=== PATIENT | female | born 1980 | race Caucasian/White ===

== ENCOUNTER 2018-07-18 09:35 | Inpatient (IN) ==
[2018-07-18 09:57] LABS: Bilirubin,Urine Small (Negative); Blood,Urine Moderate (Negative); Clarity,Urine Clear (Clear); Color,Urine Dark Yellow (Yellow); Glucose,Urine (UA) Normal (Normal); Ketones,Urine 80 mg/dL (Negative); Leukocyte Esterase,Urine Small (Negative); Nitrite,Urine Negative (Negative); PH,Urine 5.5 pH Units (5.0-8.0); Protein,Urine 100 mg/dL (Neg-Trace); Specific Gravity,Urine > 1.030 (1.010-1.025); Urobilinogen,Urine Normal (Normal)
[2018-07-18 09:58] LABS: Bacteria,Urine None Seen per hpf (None-Few); Hyaline Casts,Urine Few per lpf (None-Few); Squamous Epithelial Cell,Urine Many per lpf (None-Few); WBC,Urine 50-100 per hpf (0-3)
--- NOTE | 2018-07-18 10:05 | Emergency Department Note ---
Disposition Clinical Impression: Abdominal pain Qualifiers: Abdominal location: left lower quadrant Qualified Code(s): R10.32 - Left lower quadrant pain Hydronephrosis Qualifiers: Hydronephrosis type: unspecified Qualified Code(s): N13.30 - Unspecified hydronephrosis Urolithiasis Qualifiers: Urinary calculus location: lower urinary tract Qualified Code(s): N21.9 - Calculus of lower urinary tract, unspecified Disposition: Admitted As Inpatient Condition: Fair Referrals: NONE,PCP [Primary Care Provider] - Forms: ED Satisfaction Letter, Work/School Release Time of Disposition: 13:40 Abdominal Pain HPI - General Chief Complaint: ED Abdominal Pain Stated Complaint: Flank pain,possible UTI Time Seen by Provider: 07/18/18 09:46 Source: patient Mode of arrival: ambulatory Limitations: no limitations Nursing Notes Reviewed: Yes Vital Signs Reviewed: Yes - History of Present Illness HPI Narrative: I have re-performed and reviewed the history documented by the medical student, and I confirm its accuracy except as noted below: Agree with medical student documentation. Please see their documentation for additional detail. In summary, Patient is a 28 yo female. has a history of 1 previous kidney stone, 1 previous pyelonephritis. Did not require intervention for kidney stone in the past. Multiple episodes of vomiting over the past 2 days, along with abdominal pain that started in the left flank and then gradually migrated to the left lower quadrant and suprapubic region, described as sharp. She admits to dysuria. Denies any hematuria, vaginal bleeding or discharge, concern for STDs or genital lesions, no concern for . Also has a history of gallstones but denies ever having any competitions from gallstones or any procedures of the gallbladder performed in the past. Pain Scale: 8 - Related Data Allergies Allergy/AdvReac Type Severity Reaction Status Date / Time No Known Allergies Allergy Verified 07/18/18 09:49 All systems ED: reviewed and negative except as stated. Constitutional: Reports: fever (subjective) Cardiovascular: Denies: chest pain Respiratory: Denies: dyspnea Gastrointestinal: Reports: abdominal pain, nausea, vomiting. Denies: diarrhea, constipation Genitourinary: Reports: dysuria. Denies: frequency, hematuria, discharge, ab normal menses, genital lesions Integumentary: Denies: rash Abdominal Pain PMH - Past Medical History Medical history: Reports: no medical history Psychiatric history: Reports: no psych history - Social History Smoking status: Current every day smoker Alcohol use: Reports: none Drug use: Reports: none Physical Exam - General Limitations: no limitations General appearance: alert, in no apparent distress, other (Patient appears to be anxious, try to get comfortable on exam. Most comfortable lying flat on her back.) - Head Head exam: atraumatic, normocephalic, normal inspection - Eye Eye exam: Present: normal appearance, PERRL, EOMI - ENT ENT exam: normal oropharynx, other (tachy mucous membranes) - Neck Neck exam: Present: normal inspection, full ROM, trachea midline - Chest Chest inspection: Present: normal inspection, symmetric chest wall rise - Respiratory Respiratory exam: Present: normal lung sounds bilaterally - Cardiovascular Cardiovascular exam: Present: regular rate, normal rhythm, normal heart sounds - Abdominal Exam Abdominal exam: Present: soft, tenderness (Generalized abdominal tenderness, mild to moderate, worse in the left upper and left lower quadrant.). Absent: Merritt's sign, tenderness at McBurney's Point - Extremities Exam Extremities exam: Present: normal inspection, full ROM. Absent: tenderness, pedal edema - Back Exam Back exam: Present: full ROM, CVA tenderness (L). Absent: CVA tenderness (R), muscle spasm - Neurological Exam Neurological exam: Present: alert, oriented X3 - Psychiatric Psychiatric exam: Present: anxious - Skin Skin exam: Present: warm, dry, intact, normal color Course Course Narrative: Patient is anxious on exam, try to get comfortable. She had tacky mucous membranes. She generalized abdominal tenderness, worse on the left upper and left lower quadrants. She also has complaints of dysuria, left CVA tenderness. Currently concern for possible pyelonephritis versus kidney stone. She does have history of 1 kidney stones in the past that was uncomplicated and did not require intervention. We will go ahead and give the patient Tylenol for pain control, Zofran for nausea, 1 L normal saline bolus, perform urinalysis and urine . We will also obtain CT abdomen and pelvis without contrast for further assessment kidney stone versus other intra-abdominal process. We will also obtain LFTs and lipase due to history of gallstones and she does have some tenderness in the right upper quadrant with negative Merritt's sign. 13:30 patient has elevated white blood cell count of 30. Urinalysis shows large amount of white blood cells but negative nitrite and negative for bacteria but there is small leukocyte esterase. CT shows 8.4 x 5.8 mm stone in the left UVJ. There is also significant left sided pyelonephritis, also incidental finding of a left ovarian cyst. I talked with urology Dr. Kendall and discussed large stone and possible UTI and pyelonephritis. They requested Rocephin and to make patient nothing by mouth and will likely take out the stone later on today. He recommended admission to hospitalist service at this time. Hospitalist service has accepted the patient. To note, patient does on lab work meet sepsis criteria. However, patient does not appear septic at this time. Appropriate fluids have been ordered at this time. However, broad-spectrum antibiotics were not ordered, only Rocephin due to no clear source of infection at this time and patient not appearing septic and having no hypotension or other concerning clinical findings at this time. Abdomen/Pelvis CT 07/18/18 10:06 IMPRESSION: Severe left-sided hydroureteronephrosis relating to an obstructing stone in the low left ureter, just proximal to the left ureterovesical junction. This stone measures 8.4 x 5.8 mm. There is extensive left perinephric stranding with prominence of nearby retroperitoneal lymph nodes. The distended left renal calices efface the cortical parenchyma. The left renal parenchyma is somewhat heterogeneous. Correlate for signs and/or symptoms of superimposed ascending urinary tract infection and/or pyelonephritis. The renal parenchyma is not well studied without IV contrast. Urologic consultation recommended. Subtle increase in the density of the right renal papilla of uncertain significance. This could reflect changes relating to medullary nephrocalcinosis. Clinical correlation recommended. 4.0 cm sized left ovarian cyst with simple features. This requires no specific imaging follow-up. Mild sclerosis of the sacroiliac joints of uncertain significance. Clinical correlation is recommended. D/ / 07/18/2018 12:52:47 Nikita Calvert MD / izabel Interpreting Provider: Nikita Calvert MD Vital Signs Temperature 99.4 F 07/18/18 09:36 Pulse Rate 95 07/18/18 09:36 Respiratory Rate 18 07/18/18 09:36 Blood Pressure 136/84 07/18/18 09:36 O2 Sat by Pulse Oximetry 98 07/18/18 09:36 Temperature 99.4 F 07/18/18 09:36 Pulse Rate 92 07/18/18 13:27 Respiratory Rate 16 07/18/18 13:27 Blood Pressure 128/73 07/18/18 13:27 O2 Sat by Pulse Oximetry 97 07/18/18 13:27 Oxygen Delivery Oxygen Delivery Room Air Abdominal Pain - MDM Narrative Medical decision making narrative: Patient is anxious on exam, try to get comfortable. She had tacky mucous membranes. She generalized abdominal tenderness, worse on the left upper and left lower quadrants. She also has complaints of dysuria, left CVA tenderness. Currently concern for possible pyelonephritis versus kidney stone. She does have history of 1 kidney stones in the past that was uncomplicated and did not require intervention. We will go ahead and give the patient Tylenol for pain control, Zofran for nausea, 1 L normal saline bolus, perform urinalysis and urine . We will also obtain CT abdomen and pelvis without contrast for further assessment kidney stone versus other intra-abdominal process. We will also obtain LFTs and lipase due to history of gallstones and she does have some tenderness in the right upper quadrant with negative Merritt's sign. 13:30 patient has elevated white blood cell count of 30. Urinalysis shows large amount of white blood cells but negative nitrite and negative for bacteria but there is small leukocyte esterase. CT shows 8.4 x 5.8 mm stone in the left UVJ. There is also significant left sided pyelonephritis, also incidental finding of a left ovarian cyst. I talked with urology Dr. Kendall and ish garcía large stone and possible UTI and pyelonephritis. They requested Rocephin and to make patient nothing by mouth and will likely take out the stone later on today. He recommended admission to hospitalist service at this time. Hospitalist service has accepted the patient. To note, patient does on lab work meet sepsis criteria. However, patient does not appear septic at this time. Appropriate fluids have been ordered at this time. However, broad-spectrum antibiotics were not ordered, only Rocephin due to no clear source of infection at this time and patient not appearing septic and having no hypotension or other concerning clinical findings at this time. - Medical Records Medical records reviewed: Yes I reviewed the patient's medical records. - Lab Data Lab results reviewed: Yes I reviewed the patient's lab results. Result diagrams: 07/18/18 10:24 07/18/18 10:24 Lab Results 07/18/18 07/18/18 07/18/18 Range/Units 09:42 10:24 10:24 WBC 30.7 H* (4.3-11.1) K/mcL RBC 4.58 (3.82-4.97) M/mcL Hgb 15.1 (11.5-15.4) g/dL Hct 43.1 (35.3-44.9) % MCV 94.1 (83.0-100.0) fL MCH 33.0 (28.0-33.3) pg MCHC 35.0 (31.6-35.5) g/dL RDW 13.2 (11.5-14.5) % Plt Count 218 (140-400) K/mcL MPV 10.5 (9.4-12.4) fL Immature Gran % 0.9 (0-4) % Seg Neutrophils % 88.9 % Lymphocytes % 3.2 % Monocytes % 6.8 % Eosinophils % 0.0 % Basophils % 0.2 % Neutrophils # 27.3 H (1.6-8.9) K/mcL Lymphocytes # 1.0 (0.6-4.6) K/mcL Monocytes # 2.1 H (0.0-1.3) K/mcL Eosinophils # 0.0 (0.0-0.6) K/mcL Basophils # 0.1 (0.0-0.2) K/mcL Sodium 134 L (136-145) mEq/L Potassium 3.7 (3.5-5.1) mEq/L Chloride 103 (98-107) mEq/L Carbon Dioxide 23 (23-29) mEq/L BUN 15 (6-20) mg/dL Creatinine 0.98 (0.60-1.20) mg/dL Est GFR ( Amer) > 60 (> 60) Est GFR (Non-Af Amer) > 60 (> 60) BUN/Creatinine Ratio 15 (6-26) Glucose 127 H (70-105) mg/dL Calculated Osmolality 280 (280-300) Calcium 9.6 (8.6-10.3) mg/dL Total Bilirubin 0.8 (0.3-1.0) mg/dL Direct Bilirubin 0.1 (0.0-0.2) mg/dL Indirect Bilirubin 0.7 (0.0-1.2) mg/dL AST 15 (13-39) Units/L ALT 12 (7-52) Units/L Alkaline Phosphatase 68 (34-104) Units/L Serum Total Protein 7.8 (6.4-8.9) g/dL Albumin 4.3 (3.5-5.7) g/dL Globulin 3.5 (2.4-3.5) g/dL Albumin/Globulin Ratio 1.2 (1.1-2.2) Lipase 13 (11-82) Units/L Ur Specimen Adequacy See below A Urine Color Dark Yellow (Yellow) Urine Clarity Clear (Clear) Urine pH 5.5 (5.0-8.0) pH Units Ur Specific [place] > 1.030 H (1.010-1.025) Urine Protein 100 H (Neg-Trace) mg/dL Urine Glucose (UA) Normal (Normal) mg/dL Urine Ketones 80 H (Negative) mg/dL Urine Blood Moderate H (Negative) Urine Nitrite Negative (Negative) Urine Bilirubin Small H (Negative) Urine Urobilinogen Normal (Normal) mg/dL Ur Leukocyte Esterase Small H (Negative) Urine Microscopic RBC 0-3 (0-3) per hpf Urine Microscopic WBC 50-100 H (0-3) per hpf Ur Squamous Epith Cells Many H (None-Few) per lpf Urine Bacteria None Seen (None-Few) per hpf Hyaline Casts Few (None-Few) per lpf Ur Culture Indicated? NO. A (NO) Urine Test (Negative) 07/18/18 Range/Units 10:26 WBC (4.3-11.1) K/mcL RBC (3.82-4.97) M/mcL Hgb (11.5-15.4) g/dL Hct (35.3-44.9) % MCV (83.0-100.0) fL MCH (28.0-33.3) pg MCHC (31.6-35.5) g/dL RDW (11.5-14.5) % Plt Count (140-400) K/mcL MPV (9.4-12.4) fL Immature Gran % (0-4) % Seg Neutrophils % % Lymphocytes % % Monocytes % % Eosinophils % % Basophils % % Neutrophils # (1.6-8.9) K/mcL Lymphocytes # (0.6-4.6) K/mcL Monocytes # (0.0-1.3) K/mcL Eosinophils # (0.0-0.6) K/mcL Basophils # (0.0-0.2) K/mcL Sodium (136-145) mEq/L Potassium (3.5-5.1) mEq/L Chloride (98-107) mEq/L Carbon Dioxide (23-29) mEq/L BUN (6-20) mg/dL Creatinine (0.60-1.20) mg/dL Est GFR ( Amer) (> 60) Est GFR (Non-Af Amer) (> 60) BUN/Creatinine Ratio (6-26) Glucose (70-105) mg/dL Calculated Osmolality (280-300) Calcium (8.6-10.3) mg/dL Total Bilirubin (0.3-1.0) mg/dL Direct Bilirubin (0.0-0.2) mg/dL Indirect Bilirubin (0.0-1.2) mg/dL AST (13-39) Units/L ALT (7-52) Units/L Alkaline Phosphatase (34-104) Units/L Serum Total Protein (6.4-8.9) g/dL Albumin (3.5-5.7) g/dL Globulin (2.4-3.5) g/dL Albumin/Globulin Ratio (1.1-2.2) Lipase (11-82) Units/L Ur Specimen Adequacy Urine Color (Yellow) Urine Clarity (Clear) Urine pH (5.0-8.0) pH Units Ur Specific [place] (1.010-1.025) Urine Protein (Neg-Trace) mg/dL Urine Glucose (UA) (Normal) mg/dL Urine Ketones (Negative) mg/dL Urine Blood (Negative) Urine Nitrite (Negative) Urine Bilirubin (Negative) Urine Urobilinogen (Normal) mg/dL Ur Leukocyte Esterase (Negative) Urine Microscopic RBC (0-3) per hpf Urine Microscopic WBC (0-3) per hpf Ur Squamous Epith Cells (None-Few) per lpf Urine Bacteria (None-Few) per hpf Hyaline Casts (None-Few) per lpf Ur Culture Indicated? (NO) Urine Test Negative (Negative) - EKG Data EKG attestation: Yes I reviewed and interpreted this EKG. EKG results narrative: Abdomen/Pelvis CT 07/18/18 10:06 IMPRESSION: Severe left-sided hydroureteronephrosis relating to an obstructing stone in the low left ureter, just proximal to the left ureterovesical junction. This stone measures 8.4 x 5.8 mm. There is extensive left perinephric stranding with prominence of nearby retroperitoneal lymph nodes. The distended left renal calices efface the cortical parenchyma. The left renal parenchyma is somewhat heterogeneous. Correlate for signs and/or symptoms of superimposed ascending urinary tract infection and/or pyelonephritis. The renal parenchyma is not well studied without IV contrast. Urologic consultation recommended. Subtle increase in the density of the right renal papilla of uncertain significance. This could reflect changes relating to medullary nephrocalcinosis. Clinical correlation recommended. 4.0 cm sized left ovarian cyst with simple features. This requires no specific imaging follow-up. Mild sclerosis of the sacroiliac joints of uncertain significance. Clinical correlation is recommended. D/ / 07/18/2018 12:52:47 Nikita Calvert MD / izabel Interpreting Provider: Nikita Calvert MD S.B.A.R. - S.B.A.R. Situation: Demographics, MOA Background: Presenting Complaint, Relevant PMH, Meds, & Allergies Assessment: Vital Signs, Course and respsone to treatment, Exam Concerns, Patient/Family Expectation, Pertinant Lab Results Recommendation: Barrier(s) to disposition, Recommendation based on pending studies, treatments, or consults S.B.A.R. Report Given to: Dr. Kuhn Attestation Statement - Attestation Attestation: I, Jitendra Mckay DO, examined this patient [id number] and my medical decision-making was reviewed with Dr. Turner Morelos, Resident Physician. I agree with the documented findings, disposition and treatment plan as described except to the extent set forth below. I personally supervised and was present for the desai/critical portions of the procedures completed by the resident documented below. Please see my progress notes for details.
[2018-07-18] MEDS ORDERED: 0.9 % Sodium Chloride 1,000 ML IVC ONE ×2 (10:08→13:07)
[2018-07-18] MEDS ORDERED: *HR* FentaNYL (PF) 100 MCG/2 ML VIAL IVP ONE (10:08)
[2018-07-18] MEDS ORDERED: Ondansetron 4 MG/2 ML VIAL IVP ONE ×3 (10:09→16:16)
[2018-07-18 10:14] LABS: RBC,Urine 0-3 per hpf (0-3)
--- NOTE | 2018-07-18 10:20 | Emergency Department Note ---
Disposition Clinical Impression: Abdominal pain, Hydronephrosis, Urolithiasis Disposition: Admitted As Inpatient Condition: Fair General Adult HPI - General Chief complaint: ED Abdominal Pain Stated complaint: Flank pain,possible UTI Time Seen by Provider: 07/18/18 09:46 Source: patient Mode of arrival: ambulatory Limitations: no limitations - History of Present Illness HPI Narrative: 38 yo F with a h/o 1 kidney stone that did not require surgical removal and h/o multiple UTIs. presents c/o bilat flank pain, left greater than right, that began 2 days ago and has progressively worsened. The pt states the pain has started wrapping around to her abdomen. She describes the pain as a sharp stabbing pain that is worst in her suprapubic region. She reports that she has had similar sx in the past when she has had a kidney stone and kidney infection. Pt also reports N/V, subjective fever, chills, diaphoresis, dysuria but denies any hematuria, diarrhea, hemetemsis or any other sx at this time. Pt says that she has not been able to tolerate any solid foods but has been able to tolerate small amounts of fluids occasionally. Pt notes that she is sexually active but denies any chance of and denies any vaginal discharge or signs of STIs at this time. Pain Scale: 8 - Related Data Home Medications Medication Instructions Recorded Confirmed No Known Home Drugs 07/18/18 07/18/18 Allergies Allergy/AdvReac Type Severity Reaction Status Date / Time No Known Allergies Allergy Verified 07/18/18 09:49 All systems ED: reviewed and negative except as stated. Constitutional: Reports: fever, chills ENT ED: Denies: throat pain, dysphagia Cardiovascular: Denies: chest pain, palpitations Respiratory: Denies: cough, dyspnea Gastrointestinal: Reports: abdominal pain (bilat flank and suprapubic pain), n ausea, vomiting. Denies: diarrhea, hematemesis Genitourinary: Reports: dysuria, frequency Integumentary: Denies: rash, pruritus Neurological: Denies: headache, weakness Endocrine: Denies: polydipsia, polyuria Past Medical History - Past Medical History Medical history: Reports: no medical history Psychiatric history: Reports: no psych history - Social History Smoking Status: Current every day smoker Alcohol use: Reports: none Drug use: Reports: none Physical Exam - General Limitations: no limitations General appearance: alert, in no apparent distress Course Vital Signs Temperature 99.4 F 07/18/18 09:36 Pulse Rate 95 07/18/18 09:36 Respiratory Rate 18 07/18/18 09:36 Blood Pressure 136/84 07/18/18 09:36 O2 Sat by Pulse Oximetry 98 07/18/18 09:36 Temperature 99.4 F 07/18/18 09:36 Pulse Rate 92 07/18/18 13:27 Respiratory Rate 16 07/18/18 13:27 Blood Pressure 128/73 07/18/18 13:27 O2 Sat by Pulse Oximetry 97 07/18/18 13:27 Oxygen Delivery Oxygen Delivery Room Air Medical Decision Making - Lab Data Result diagrams: 07/18/18 10:24 07/18/18 10:24 Lab Results 07/18/18 07/18/18 07/18/18 Range/Units 09:42 10:24 10:24 WBC 30.7 H* (4.3-11.1) K/mcL RBC 4.58 (3.82-4.97) M/mcL Hgb 15.1 (11.5-15.4) g/dL Hct 43.1 (35.3-44.9) % MCV 94.1 (83.0-100.0) fL MCH 33.0 (28.0-33.3) pg MCHC 35.0 (31.6-35.5) g/dL RDW 13.2 (11.5-14.5) % Plt Count 218 (140-400) K/mcL MPV 10.5 (9.4-12.4) fL Immature Gran % 0.9 (0-4) % Seg Neutrophils % 88.9 % Lymphocytes % 3.2 % Monocytes % 6.8 % Eosinophils % 0.0 % Basophils % 0.2 % Neutrophils # 27.3 H (1.6-8.9) K/mcL Lymphocytes # 1.0 (0.6-4.6) K/mcL Monocytes # 2.1 H (0.0-1.3) K/mcL Eosinophils # 0.0 (0.0-0.6) K/mcL Basophils # 0.1 (0.0-0.2) K/mcL Sodium 134 L (136-145) mEq/L Potassium 3.7 (3.5-5.1) mEq/L Chloride 103 (98-107) mEq/L Carbon Dioxide 23 (23-29) mEq/L BUN 15 (6-20) mg/dL Creatinine 0.98 (0.60-1.20) mg/dL Est GFR ( Amer) > 60 (> 60) Est GFR (Non-Af Amer) > 60 (> 60) BUN/Creatinine Ratio 15 (6-26) Glucose 127 H (70-105) mg/dL Calculated Osmolality 280 (280-300) Calcium 9.6 (8.6-10.3) mg/dL Total Bilirubin 0.8 (0.3-1.0) mg/dL Direct Bilirubin 0.1 (0.0-0.2) mg/dL Indirect Bilirubin 0.7 (0.0-1.2) mg/dL AST 15 (13-39) Units/L ALT 12 (7-52) Units/L Alkaline Phosphatase 68 (34-104) Units/L Serum Total Protein 7.8 (6.4-8.9) g/dL Albumin 4.3 (3.5-5.7) g/dL Globulin 3.5 (2.4-3.5) g/dL Albumin/Globulin Ratio 1.2 (1.1-2.2) Lipase 13 (11-82) Units/L Ur Specimen Adequacy See below A Urine Color Dark Yellow (Yellow) Urine Clarity Clear (Clear) Urine pH 5.5 (5.0-8.0) pH Units Ur Specific [place] > 1.030 H (1.010-1.025) Urine Protein 100 H (Neg-Trace) mg/dL Urine Glucose (UA) Normal (Normal) mg/dL Urine Ketones 80 H (Negative) mg/dL Urine Blood Moderate H (Negative) Urine Nitrite Negative (Negative) Urine Bilirubin Small H (Negative) Urine Urobilinogen Normal (Normal) mg/dL Ur Leukocyte Esterase Small H (Negative) Urine Microscopic RBC 0-3 (0-3) per hpf Urine Microscopic WBC 50-100 H (0-3) per hpf Ur Squamous Epith Cells Many H (None-Few) per lpf Urine Bacteria None Seen (None-Few) per hpf Hyaline Casts Few (None-Few) per lpf Ur Culture Indicated? NO. A (NO) Urine Test (Negative) 04/25/19 Range/Units 10:26 WBC (4.3-11.1) K/mcL RBC (3.82-4.97) M/mcL Hgb (11.5-15.4) g/dL Hct (35.3-44.9) % MCV (83.0-100.0) fL MCH (28.0-33.3) pg MCHC (31.6-35.5) g/dL RDW (11.5-14.5) % Plt Count (140-400) K/mcL MPV (9.4-12.4) fL Immature Gran % (0-4) % Seg Neutrophils % % Lymphocytes % % Monocytes % % Eosinophils % % Basophils % % Neutrophils # (1.6-8.9) K/mcL Lymphocytes # (0.6-4.6) K/mcL Monocytes # (0.0-1.3) K/mcL Eosinophils # (0.0-0.6) K/mcL Basophils # (0.0-0.2) K/mcL Sodium (136-145) mEq/L Potassium (3.5-5.1) mEq/L Chloride (98-107) mEq/L Carbon Dioxide (23-29) mEq/L BUN (6-20) mg/dL Creatinine (0.60-1.20) mg/dL Est GFR ( Amer) (> 60) Est GFR (Non-Af Amer) (> 60) BUN/Creatinine Ratio (6-26) Glucose (70-105) mg/dL Calculated Osmolality (280-300) Calcium (8.6-10.3) mg/dL Total Bilirubin (0.3-1.0) mg/dL Direct Bilirubin (0.0-0.2) mg/dL Indirect Bilirubin (0.0-1.2) mg/dL AST (13-39) Units/L ALT (7-52) Units/L Alkaline Phosphatase (34-104) Units/L Serum Total Protein (6.4-8.9) g/dL Albumin (3.5-5.7) g/dL Globulin (2.4-3.5) g/dL Albumin/Globulin Ratio (1.1-2.2) Lipase (11-82) Units/L Ur Specimen Adequacy Urine Color (Yellow) Urine Clarity (Clear) Urine pH (5.0-8.0) pH Units Ur Specific [place] (1.010-1.025) Urine Protein (Neg-Trace) mg/dL Urine Glucose (UA) (Normal) mg/dL Urine Ketones (Negative) mg/dL Urine Blood (Negative) Urine Nitrite (Negative) Urine Bilirubin (Negative) Urine Urobilinogen (Normal) mg/dL Ur Leukocyte Esterase (Negative) Urine Microscopic RBC (0-3) per hpf Urine Microscopic WBC (0-3) per hpf Ur Squamous Epith Cells (None-Few) per lpf Urine Bacteria (None-Few) per hpf Hyaline Casts (None-Few) per lpf Ur Culture Indicated? (NO) Urine Test Negative (Negative) Attestation Statement - Attestation Attestation: I, Jitendra Mckay DO, examined this patient [id number] and my medical decision-making was reviewed with ( ), Resident Physician. I agree with the documented findings, disposition and treatment plan as described except to the extent set forth below. I personally supervised and was present for the desai/critical portions of the procedures completed by the resident documented below. Please see my progress notes for details.
--- NOTE | 2018-07-18 10:46 | Emergency Department Note ---
Disposition Clinical Impression: Abdominal pain Qualifiers: Abdominal location: left lower quadrant Qualified Code(s): R10.32 - Left lower quadrant pain Hydronephrosis Qualifiers: Hydronephrosis type: unspecified Qualified Code(s): N13.30 - Unspecified hydronephrosis Urolithiasis Qualifiers: Urinary calculus location: lower urinary tract Qualified Code(s): N21.9 - Calculus of lower urinary tract, unspecified; N21 - Calculus of lower urinary tract Disposition: Admitted As Inpatient Condition: Fair Referrals: NONE,PCP [Primary Care Provider] - Forms: ED Satisfaction Letter, Work/School Release Time of Disposition: 13:36 General Adult HPI - General Chief complaint: ED Abdominal Pain Stated complaint: Flank pain,possible UTI Time Seen by Provider: 07/18/18 09:46 Source: patient Mode of arrival: ambulatory Limitations: no limitations - History of Present Illness Pain Scale: 8 - Related Data Allergies Allergy/AdvReac Type Severity Reaction Status Date / Time No Known Allergies Allergy Verified 07/18/18 09:49 Constitutional: Reports: fever, chills ENT ED: Denies: throat pain, dysphagia Cardiovascular: Denies: chest pain, palpitations Respiratory: Denies: cough, dyspnea Gastrointestinal: Reports: abdominal pain (bilat flank and suprapubic pain), nausea, vomiting. Denies: diarrhea, hematemesis Genitourinary: Reports: dysuria, frequency Integumentary: Denies: rash, pruritus Neurological: Denies: headache, weakness Endocrine: Denies: polydipsia, polyuria Past Medical History - Past Medical History Medical history: Reports: no medical history Psychiatric history: Reports: no psych history - Social History Smoking Status: Current every day smoker Alcohol use: Reports: none Drug use: Reports: none Physical Exam - General Limitations: no limitations General appearance: alert, in no apparent distress Course Vital Signs Temperature 99.4 F 07/18/18 09:36 Pulse Rate 95 07/18/18 09:36 Respiratory Rate 18 07/18/18 09:36 Blood Pressure 136/84 07/18/18 09:36 O2 Sat by Pulse Oximetry 98 07/18/18 09:36 Temperature 99.4 F 07/18/18 09:36 Pulse Rate 92 07/18/18 13:27 Respiratory Rate 16 07/18/18 13:27 Blood Pressure 128/73 07/18/18 13:27 O2 Sat by Pulse Oximetry 97 07/18/18 13:27 Oxygen Delivery Oxygen Delivery Room Air Medical Decision Making - Lab Data Result diagrams: 07/18/18 10:24 07/18/18 10:24 Lab Results 07/18/18 07/18/18 07/18/18 Range/Units 09:42 10:24 10:24 WBC 30.7 H* (4.3-11.1) K/mcL RBC 4.58 (3.82-4.97) M/mcL Hgb 15.1 (11.5-15.4) g/dL Hct 43.1 (35.3-44.9) % MCV 94.1 (83.0-100.0) fL MCH 33.0 (28.0-33.3) pg MCHC 35.0 (31.6-35.5) g/dL RDW 13.2 (11.5-14.5) % Plt Count 218 (140-400) K/mcL MPV 10.5 (9.4-12.4) fL Immature Gran % 0.9 (0-4) % Seg Neutrophils % 88.9 % Lymphocytes % 3.2 % Monocytes % 6.8 % Eosinophils % 0.0 % Basophils % 0.2 % Neutrophils # 27.3 H (1.6-8.9) K/mcL Lymphocytes # 1.0 (0.6-4.6) K/mcL Monocytes # 2.1 H (0.0-1.3) K/mcL Eosinophils # 0.0 (0.0-0.6) K/mcL Basophils # 0.1 (0.0-0.2) K/mcL Sodium 134 L (136-145) mEq/L Potassium 3.7 (3.5-5.1) mEq/L Chloride 103 (98-107) mEq/L Carbon Dioxide 23 (23-29) mEq/L BUN 15 (6-20) mg/dL Creatinine 0.98 (0.60-1.20) mg/dL Est GFR ( Amer) > 60 (> 60) Est GFR (Non-Af Amer) > 60 (> 60) BUN/Creatinine Ratio 15 (6-26) Glucose 127 H (70-105) mg/dL Calculated Osmolality 280 (280-300) Calcium 9.6 (8.6-10.3) mg/dL Total Bilirubin 0.8 (0.3-1.0) mg/dL Direct Bilirubin 0.1 (0.0-0.2) mg/dL Indirect Bilirubin 0.7 (0.0-1.2) mg/dL AST 15 (13-39) Units/L ALT 12 (7-52) Units/L Alkaline Phosphatase 68 (34-104) Units/L Serum Total Protein 7.8 (6.4-8.9) g/dL Albumin 4.3 (3.5-5.7) g/dL Globulin 3.5 (2.4-3.5) g/dL Albumin/Globulin Ratio 1.2 (1.1-2.2) Lipase 13 (11-82) Units/L Ur Specimen Adequacy See below A Urine Color Dark Yellow (Yellow) Urine Clarity Clear (Clear) Urine pH 5.5 (5.0-8.0) pH Units Ur Specific [place] > 1.030 H (1.010-1.025) Urine Protein 100 H (Neg-Trace) mg/dL Urine Glucose (UA) Normal (Normal) mg/dL Urine Ketones 80 H (Negative) mg/dL Urine Blood Moderate H (Negative) Urine Nitrite Negative (Negative) Urine Bilirubin Small H (Negative) Urine Urobilinogen Normal (Normal) mg/dL Ur Leukocyte Esterase Small H (Negative) Urine Microscopic RBC 0-3 (0-3) per hpf Urine Microscopic WBC 50-100 H (0-3) per hpf Ur Squamous Epith Cells Many H (None-Few) per lpf Urine Bacteria None Seen (None-Few) per hpf Hyaline Casts Few (None-Few) per lpf Ur Culture Indicated? NO. A (NO) Urine Test (Negative) 07/18/18 Range/Units 10:26 WBC (4.3-11.1) K/mcL RBC (3.82-4.97) M/mcL Hgb (11.5-15.4) g/dL Hct (35.3-44.9) % MCV (83.0-100.0) fL MCH (28.0-33.3) pg MCHC (31.6-35.5) g/dL RDW (11.5-14.5) % Plt Count (140-400) K/mcL MPV (9.4-12.4) fL Immature Gran % (0-4) % Seg Neutrophils % % Lymphocytes % % Monocytes % % Eosinophils % % Basophils % % Neutrophils # (1.6-8.9) K/mcL Lymphocytes # (0.6-4.6) K/mcL Monocytes # (0.0-1.3) K/mcL Eosinophils # (0.0-0.6) K/mcL Basophils # (0.0-0.2) K/mcL Sodium (136-145) mEq/L Potassium (3.5-5.1) mEq/L Chloride (98-107) mEq/L Carbon Dioxide (23-29) mEq/L BUN (6-20) mg/dL Creatinine (0.60-1.20) mg/dL Est GFR ( Amer) (> 60) Est GFR (Non-Af Amer) (> 60) BUN/Creatinine Ratio (6-26) Glucose (70-105) mg/dL Calculated Osmolality (280-300) Calcium (8.6-10.3) mg/dL Total Bilirubin (0.3-1.0) mg/dL Direct Bilirubin (0.0-0.2) mg/dL Indirect Bilirubin (0.0-1.2) mg/dL AST (13-39) Units/L ALT (7-52) Units/L Alkaline Phosphatase (34-104) Units/L Serum Total Protein (6.4-8.9) g/dL Albumin (3.5-5.7) g/dL Globulin (2.4-3.5) g/dL Albumin/Globulin Ratio (1.1-2.2) Lipase (11-82) Units/L Ur Specimen Adequacy Urine Color (Yellow) Urine Clarity (Clear) Urine pH (5.0-8.0) pH Units Ur Specific [place] (1.010-1.025) Urine Protein (Neg-Trace) mg/dL Urine Glucose (UA) (Normal) mg/dL Urine Ketones (Negative) mg/dL Urine Blood (Negative) Urine Nitrite (Negative) Urine Bilirubin (Negative) Urine Urobilinogen (Normal) mg/dL Ur Leukocyte Esterase (Negative) Urine Microscopic RBC (0-3) per hpf Urine Microscopic WBC (0-3) per hpf Ur Squamous Epith Cells (None-Few) per lpf Urine Bacteria (None-Few) per hpf Hyaline Casts (None-Few) per lpf Ur Culture Indicated? (NO) Urine Test Negative (Negative) Attestation Statement - Attestation Attestation: I, Jitendra Mckay DO, examined this patient [id number] and my medical decision-making was reviewed with Dr. Turner Morelos, Resident Physician. I agree with the documented findings, disposition and treatment plan as described except to the extent set forth below. I personally supervised and was present for the desai/critical portions of the procedures completed by the resident documented below. Please see my progress notes for details. 38-year-old female presents emergency room for evaluation of abdominal pain. She has intermittent bilateral pain that starts in her bilateral flanks and goes down into her abdomen. She denies any vaginal discharge or bleeding. Denies any chest pain or shortness of breath. She does not have any nausea vomiting or diarrhea. She has not had any fevers or chills. She denies any falls trauma or injury. Vital signs otherwise stable on presentation. Patient is sitting in the bed in no specific distress at this time. Mucous membranes are moist. Oropharynx is patent. Lungs are clear to auscultation bilaterally. Artery is regular. Abdomen is soft nontender nondistended with no guarding no rigidity no peritoneal symptoms at this time. Patient does have mild discomfort in the lower abdomen but does not show any peritoneal-like presentation this point. She does still have her appendix and gallbladder. She was supposed to have her gallbladder removed secondary to gallstones but has not completed the procedure. Patient describes periumbilical discomfort with no radiation at this point. She also has anorexia at home that causes nausea. Patient will have detailed workup completed here today with CBC chemistry liver function testing and lipase along with urinalysis and urine test. Fluids nausea medication pain medication will be given and the patient was CT imaging of the abdomen completed. Otherwise the patient is stable. See detailed documentation of the physical exam, medical intervention, medical decision-making and disposition in the resident physician's note. No critical care applied the patient's treatment course at this time. 1300 CT confirms 8mm by 6 mm stone at the distal ureter with significant hydronephrosis and signs of pyelonephritis. Urine does not show any gross infection at this point. Because the patient's presentation as well as the white blood cell count neutrophilia urology will be consult for recommendations. Concern is noted for upstream infection despite the urine being clean at this time. Disposition determined after consultation is placed. Patient does meet sepsis criteria does not show any signs of septic shock or severe sepsis requiring fluid management or other intervention at this point. [address] Sanchez reviewed the case and recommended admission to the hospitals for antibiotic regiment and surgical intervention. Hospitalist Dr. Sykes reviewed the case. He had no other recommendations or concerns at this time. Patient will be admitted for symptomatic control and management. No other acute issues noted. Patient will be monitored here in the emergency room for continuation of care management.
[2018-07-18 10:48] LABS: Basophils % 0.2 %; Hemoglobin 15.1 g/dL (11.5-15.4); Red Blood Count 4.58 M/mcL (3.82-4.97); Red Cell Distribution Width 13.2 % (11.5-14.5)
[2018-07-18 10:50] LABS: Basophils # 0.1 K/mcL (0.0-0.2); Hematocrit 43.1 % (35.3-44.9); Immature Granulocytes % 0.9 % (0-4); Lymphocytes % 3.2 %; Mean Corpuscular Volume 94.1 fL (83.0-100.0); Mean Platelet Volume 10.5 fL (9.4-12.4); Monocytes # 2.1 K/mcL (0.0-1.3); Monocytes % 6.8 %; Neutrophils # 27.3 K/mcL (1.6-8.9); Platelet Count 218 K/mcL (140-400); Segmented Neutrophils % 88.9 %
[2018-07-18 11:07] LABS: Alanine Aminotransferase 12 Units/L (7-52); Albumin 4.3 g/dL (3.5-5.7); Albumin/Globulin Ratio 1.2 (1.1-2.2); Alkaline Phosphatase 68 Units/L (34-104); Aspartate Amino Transferase 15 Units/L (13-39); BUN/Creatinine Ratio 15 (6-26); Bilirubin,Direct 0.1 mg/dL (0.0-0.2); Bilirubin,Indirect 0.7 mg/dL (0.0-1.2); Bilirubin,Total 0.8 mg/dL (0.3-1.0); Blood Urea Nitrogen 15 mg/dL (6-20); Calcium 9.6 mg/dL (8.6-10.3); Carbon Dioxide 23 mEq/L (23-29); Chloride 103 mEq/L (98-107); Globulin 3.5 g/dL (2.4-3.5); Glucose 127 mg/dL (70-105); Lipase 13 Units/L (11-82); Osmolality,Calculated 280 (280-300); Potassium 3.7 mEq/L (3.5-5.1); Sodium 134 mEq/L (136-145); Total Protein 7.8 g/dL (6.4-8.9); eGFR For Non-African Americans > 60 (> 60)
[2018-07-18] MEDS ORDERED: Ketorolac 15 MG/ML VIAL IVP ONE (11:34)
[2018-07-18] MEDS ORDERED: *HR* HYDROmorphone (PF) 1 MG/ML SYRINGE IVP ONE (13:07)
[2018-07-18] MEDS ORDERED: cefTRIAXone 1,000 MG in Water for inj. (sterile) 20 ML 10 ML IVP ONE (13:19)
[2018-07-18] MEDS ORDERED: 0.9 % Sodium Chloride 500 ML IVC ONE (13:38)
--- NOTE | 2018-07-18 13:51 | Urology - Consult Note ---
Date of Encounter: 07/18/18 Time of Encounter: 13:20 - Assessment and Plan (1) Ureteral stone with hydronephrosis Current Visit: Yes Status: Acute Assessment and plan: Patient is a 38-year-old female who presents with a left distal 8 x 5 mm ureteral stone and hydronephrosis. Vital signs are currently stable and afebrile. White blood cell count is markedly elevated at 30.7. Renal function is reassuring. Patient has been given IV Rocephin. We discussed surgical risks and benefits including but not limited to bleeding, infection, scarring, stricture, damage to kidney or bladder, failure to extract stone in one procedure, possible nephrostomy tube placement, anesthesia risks, deep vein thrombosis. Patient verbalizes understanding, and consent has been signed. Patient is prepared to undergo a left ureteroscopic stone extraction with or without holmium laser lithotripsy, basket retrieval, left retrograde pyelogram, and left ureteral stent placement later this afternoon with Dr. Kendall. Patient has not had anything to eat or drink since yesterday, and she will remain nothing by mouth. Urology CN:[facility] Consult date: 07/18/18 Reason for consult Urology: Other (left ureteral stone) Requesting physician: Turner Morelos History of present illness: Patient is a 38-year-old female who presents with an 8 x 5 mm left distal ureteral stone. Patient reports a 2 day history of severe left flank pain, nausea, vomiting and chills. Patient presented to the emergency department and underwent a CT of the abdomen and pelvis revealing a distal left ureteral stone measuring 8 x 5 mm, severe left hydronephrosis and left perinephric stranding. Patient states she is experiencing some dysuria, frequency, urgency and hesitancy. She denies any gross hematuria or incontinence. Patient reports a long-standing history of renal stones with her last stone occurring approximately 2-3 years ago. Patient has passed all prior stones by medical expulsion. Patient denies any known family history of renal stones. Past Med Surg Social Fam HX - Past Medical History Medical history: no medical history Psychiatric history: no psych history - Past Surgical History Surgical History: no surgical history - Social History Smoking Status: Current every day smoker Alcohol use: none Drug use: none - Additional Family History Additional family history: No known documented family history of renal stones Medications and Allergies No Known Home Drugs 07/18/18 [History] Allergy/AdvReac Type Severity Reaction Status Date / Time No Known Allergies Allergy Verified 07/18/18 09:49 Review of Systems - Constitutional chills, fatigue, no fever(s) - EENT Nose, mouth and throat: no dizziness, no headache(s) - Cardiovascular no chest pain, no diaphoresis, no dyspnea - Respiratory no cough, no dyspnea - Gastrointestinal abdominal pain, nausea, vomiting, no change in bowel habits - Genitourinary Genitourinary: dysuria, flank pain, urinary frequency, urinary hesitancy, u rinary urgency, no difficulty urinating, no hematuria, no urinary incontinence - Musculoskeletal back pain, no muscle weakness - Integumentary no erythema, no rash, no swelling - Neurological no confusion, no syncope - Psychiatric no anxiety, no confusion - Hematologic/Lymphatic no easy bleeding, no easy bruising - Allergic/Immunologic no throat swelling, no wheezing Exam Initial Vital Signs Temp Pulse Resp BP Pulse Ox 99.4 F 95 18 136/84 98 07/18/18 09:36 07/18/18 09:36 07/18/18 09:36 07/18/18 09:36 07/18/18 09:36 - General physical appearance Present: no distress, no pain - Eyes Present: PERRL, normal ocular movement - ENT Present: normal nares, no hearing loss, no congestion - Neck Present: no masses, trachea midline, no lymphadenopathy - Respiratory Present: normal respiratory effort - Cardiovascular Cardiovascular exam IM: RRR - Abdomen Abdomen: Present: soft, tender (Left CVAT) - Integumentary Present: no rash, no abnormal pigmentation - Neurologic Present: normal coordination - Musculoskeletal Present: other (Normal posture) Urology Results - Labs 07/18/18 10:24 07/18/18 10:24 Abnormal lab results WBC 30.7 K/mcL (4.3-11.1) H* 07/18/18 10:24 Neutrophils # 27.3 K/mcL (1.6-8.9) H 07/18/18 10:24 Monocytes # 2.1 K/mcL (0.0-1.3) H 07/18/18 10:24 Sodium 134 mEq/L (136-145) L 07/18/18 10:24 Glucose 127 mg/dL (70-105) H 07/18/18 10:24 Ur Specimen Adequacy See below A 07/18/18 09:42 Ur Specific [place] > 1.030 (1.010-1.025) H 07/18/18 09:42 Urine Protein 100 mg/dL (Neg-Trace) H 07/18/18 09:42 Urine Ketones 80 mg/dL (Negative) H 07/18/18 09:42 Urine Blood Moderate (Negative) H 07/18/18 09:42 Urine Bilirubin Small (Negative) H 07/18/18 09:42 Ur Leukocyte Esterase Small (Negative) H 07/18/18 09:42 Urine Microscopic WBC 50-100 per hpf (0-3) H 07/18/18 09:42 Ur Squamous Epith Cells Many per lpf (None-Few) H 07/18/18 09:42 Ur Culture Indicated? NO. (NO) A 07/18/18 09:42 Diabetes panel 07/18/18 Range/Units 10:24 Sodium 134 L (136-145) mEq/L Potassium 3.7 (3.5-5.1) mEq/L Chloride 103 (98-107) mEq/L Carbon Dioxide 23 (23-29) mEq/L BUN 15 (6-20) mg/dL Creatinine 0.98 (0.60-1.20) mg/dL Glucose 127 H (70-105) mg/dL Calcium 9.6 (8.6-10.3) mg/dL AST 15 (13-39) Units/L ALT 12 (7-52) Units/L Alkaline Phosphatase 68 (34-104) Units/L Albumin 4.3 (3.5-5.7) g/dL Calcium panel 07/18/18 Range/Units 10:24 Calcium 9.6 (8.6-10.3) mg/dL Albumin 4.3 (3.5-5.7) g/dL Pituitary panel 07/18/18 Range/Units 10:24 Sodium 134 L (136-145) mEq/L Potassium 3.7 (3.5-5.1) mEq/L Chloride 103 (98-107) mEq/L Carbon Dioxide 23 (23-29) mEq/L BUN 15 (6-20) mg/dL Creatinine 0.98 (0.60-1.20) mg/dL Glucose 127 H (70-105) mg/dL Calcium 9.6 (8.6-10.3) mg/dL Adrenal panel 07/18/18 Range/Units 10:24 Sodium 134 L (136-145) mEq/L Potassium 3.7 (3.5-5.1) mEq/L Chloride 103 (98-107) mEq/L Carbon Dioxide 23 (23-29) mEq/L BUN 15 (6-20) mg/dL Creatinine 0.98 (0.60-1.20) mg/dL Glucose 127 H (70-105) mg/dL Calcium 9.6 (8.6-10.3) mg/dL Total Bilirubin 0.8 (0.3-1.0) mg/dL AST 15 (13-39) Units/L ALT 12 (7-52) Units/L Alkaline Phosphatase 68 (34-104) Units/L Albumin 4.3 (3.5-5.7) g/dL All other labs normal. - Imaging CT scan - abdomen: report reviewed, image reviewed CT scan - pelvis: report reviewed, image reviewed Consult Discharge Plan - Plan Referrals: NONE,PCP [Primary Care Provider] -
[2018-07-18] MEDS ORDERED: Naloxone 0.4 MG/ML INJ IVP PRN ×2 (14:09→17:52)
[2018-07-18] MEDS ORDERED: Ondansetron 4 MG/2 ML VIAL IVP PRN (14:12)
[2018-07-18] MEDS ORDERED: 0.9 % Sodium Chloride 1,000 ML IVC SCH (14:15)
[2018-07-18] MEDS ORDERED: *HR* FentaNYL (PF) 100 MCG/2 ML VIAL IVP PRN (14:17)
[2018-07-18] MEDS ORDERED: Ketorolac 15 MG/ML VIAL IVP PRN (14:18)
--- NOTE | 2018-07-18 15:29 | Anesthesia Evaluation PreOp ---
Date of Encounter: 07/18/18 Time of Encounter: 15:27 - Past History Planned Operation: Left USE with stent insertion Cardiac History: Denies any Significant Hx Pulmonary History: Smoker [employer] History: Denies Any Significant HX Other Medical History: Denies Any Significant HX Anesthesia History: Past Anesthesia Test: Negative (today) Alcohol Use: none Drug use: none Medications and Allergies No Known Home Drugs 07/18/18 [History] Allergy/AdvReac Type Severity Reaction Status Date / Time No Known Allergies Allergy Verified 07/18/18 09:49 - Meds/Allergy Pre-op Review Medications Reviewed: Yes Allergies Reviewed: Yes Beta Blockers on Current Med List: No Anesthesia Results - Labs 07/18/18 10:24 07/18/18 10:24 Laboratory Tests 07/18/18 10:26 Urine Test Negative Anesthesia Exam Vital Signs/O2 Sat, Most Current Temp Pulse Resp BP Pulse Ox 100.1 F H 90 18 129/76 99 07/18/18 15:04 07/18/18 15:04 07/18/18 15:04 07/18/18 15:04 07/18/18 15:04 Weight: 81kg
[2018-07-18] MEDS ORDERED: Albuterol 2.5 MG/3 ML NEBULIZER IH ONE (15:31)
[2018-07-18] MEDS ORDERED: Acetaminophen IV 1,000 MG/100 ML INFUS..BTL ONE (15:53)
[2018-07-18] MEDS ORDERED: Acetaminophen IV 1,000 MG/100 ML INFUS..BTL IVPB ONE (16:00)
[2018-07-18] MEDS ORDERED: Albuterol 2.5 MG/3 ML NEBULIZER ONE (16:01)
[2018-07-18] MEDS ORDERED: Lidocaine -MPF 2% 2 ML VIAL ONE (16:08)
[2018-07-18] MEDS ORDERED: Lidocaine -MPF 4% 5 ML AMPUL ONE (16:08)
[2018-07-18] MEDS ORDERED: *HR* PHENYLEPHRINE 1,000 MCG/10 ML SYRINGE IVP ONE (16:08)
[2018-07-18] MEDS ORDERED: *HR* Succinylcholine 200 MG/10 ML VIAL IVP ONE (16:08)
[2018-07-18] MEDS ORDERED: *HR* Propofol 200 MG/20 ML VIAL IVP ONE (16:08)
[2018-07-18] MEDS ORDERED: Dexamethasone 4 MG/ML VIAL ONE (16:08)
[2018-07-18] MEDS ORDERED: Ondansetron 4 MG/2 ML VIAL ONE (16:08)
[2018-07-18] MEDS ORDERED: *HR* Midazolam HCl 2 MG/2 ML VIAL ONE (16:09)
[2018-07-18] MEDS ORDERED: *HR* FentaNYL (PF) 100 MCG/2 ML VIAL ONE (16:09)
[2018-07-18] MEDS ORDERED: *HR* Meperidine 25 MG/ML SYRINGE IVP PRN (16:16)
[2018-07-18] MEDS ORDERED: *HR* OxyCODONE Immed Rel 5 MG TABLET PO PRN (16:16)
[2018-07-18] MEDS ORDERED: *HR* HYDROmorphone (PF) 1 MG/ML SYRINGE IVP PRN (16:16)
[2018-07-18] MEDS ORDERED: *HR* Promethazine 25 MG/ML VIAL IVP PRN (16:16)
[2018-07-18] MEDS ORDERED: *HR* HYDROMORPHONE 2 MG/ML VIAL ONE (16:27)
[2018-07-18] MEDS ORDERED: Ringers Solution, Lactated 1,000 ML IVC SCH (16:30)
--- NOTE | 2018-07-18 16:56 | Internal Med History&Physical ---
Date of Encounter: 07/18/18 Time of Encounter: 16:00 Internal Medicine - H&P: HPI Chief complaint: left flank pain of 2 days duration History of present illness: Ms. Pena is a 38 year old female with pmh of kidney stones complaining of a 2 day history of severe left flank pain, nausea, vomiting and fevers. Patient says she experienced similar symptoms about a year ago and was admitted to the hospital and was told the stone would pass on its own. The stone did not pass and she has not followed up with a urologist since then. She has had severe flank pain radiating around the abdomen, along with pain in the groin and burning on urination. She came to the ER, and had a CT scan done showing a left distal 8 X5 mm ureteral stone and hydronephrosis. WBC was noted to be elevated at 30. urology has beeen consulted and she is being admitted for further management. She has been started on IV ceftriaxone Past Med Surg Social Fam HX - Past Medical History Medical history: no medical history Psychiatric history: no psych history - Past Surgical History Surgical History: no surgical history - Social History Smoking Status: Current every day smoker Smokeless Tobacco Status: No Alcohol use: none Drug use: none Internal Medicine - H&P: Meds No Known Home Drugs 07/18/18 [History] Allergy/AdvReac Type Severity Reaction Status Date / Time No Known Allergies Allergy Verified 07/18/18 09:49 All Systems PM: A 10-system review of systems was performed and is negative for pertinent findings except as documented above in the HPI. - Constitutional Constitutional: no chills, no fever(s), no night sweats - EENT Eyes: no change in vision, no discharge, no pain, no photophobia Ears: no ear discharge, no ear pain, no tinnitus Nose, mouth and throat: no dysphagia, no nasal discharge, no neck pain, no sore throat - Cardiovascular Cardiovascular ROS IM: no chest pain, no diaphoresis, no dyspnea, no lightheadedness, no palpitations, no syncope - Respiratory Respiratory: no cough, no dyspnea, no wheezing, no excessive phlegm production - Gastrointestinal Gastrointestinal: no abdominal pain, no diarrhea, no hematemesis, no hematochezia, no melena, no nausea, no vomiting - Genitourinary Genitourinary: dysuria, flank pain, no change in urinary stream, no hematuria - Musculoskeletal Musculoskeletal ROS IM: no numbness, no tingling - Integumentary Integumentary IM: no rash, no unusual bruising - Neurological Neurological ROS: no confusion, no convulsions, no focal weakness, no numbness, no tingling, no tremor(s) - Hematologic/Lymphatic Hematologic/Lymphatic: no easy bruising - Constitutional Vitals: Temp Pulse Resp BP Pulse Ox 100.1 F H 90 18 129/76 99 07/18/18 15:04 07/18/18 15:04 07/18/18 15:04 07/18/18 15:04 07/18/18 15:04 Exam: Mild pain - Head Head exam: Present: atraumatic, normocephalic - Eye Eye exam: Present: PERRL, conjuntiva pink, sclera anicteric Pupils: Present: PERRL - Neck Neck exam general surgery: Present: supple, trachea midline. Absent: lymphadenopathy - Respiratory Respiratory exam: Present: CTAB. Absent: accessory muscle use, rales, rhonchi, wheezes - Cardiovascular Cardiovascular exam: Present: RRR, +S1, +S2. Absent: diastolic murmur, gallop, rubs, systolic murmur - GI/Abdominal GI/Abdominal exam: Present: normal bowel sounds, soft, no peritoneal signs. Absent: distended, tenderness - Additional comments: Right flank tenderness to palpation - Extremities Exam Extremities exam: Present: warm, radial pulses palpable and symmetrical. Absent: calf tenderness, cyanotic, pedal edema - Neurological Exam Neurological exam: Present: CN II-XII intact, oriented X3, no focal deficits. Absent: pronater drift, facial droop, speech deficit - Skin Skin exam: Present: dry, intact Internal Med - H&P Results - Labs CBC & Chem 7: 07/18/18 10:24 07/18/18 10:24 Labs: Short CBC 07/18/18 Range/Units 10:24 WBC 30.7 H* (4.3-11.1) K/mcL Hgb 15.1 (11.5-15.4) g/dL Hct 43.1 (35.3-44.9) % Plt Count 218 (140-400) K/mcL Neutrophils # 27.3 H (1.6-8.9) K/mcL BMP 07/18/18 10:24 Sodium 134 L Potassium 3.7 Chloride 103 Carbon Dioxide 23 BUN 15 Creatinine 0.98 Glucose 127 H Calcium 9.6 Liver Function 07/18/18 Range/Units 10:24 Total Bilirubin 0.8 (0.3-1.0) mg/dL Direct Bilirubin 0.1 (0.0-0.2) mg/dL AST 15 (13-39) Units/L ALT 12 (7-52) Units/L Alkaline Phosphatase 68 (34-104) Units/L Albumin 4.3 (3.5-5.7) g/dL Urine 07/18/18 Range/Units 09:42 Urine Color Dark Yellow (Yellow) Urine Clarity Clear (Clear) Urine pH 5.5 (5.0-8.0) pH Units Ur Specific [place] > 1.030 H (1.010-1.025) Urine Protein 100 H (Neg-Trace) mg/dL Urine Glucose (UA) Normal (Normal) mg/dL - Impressions ITS Impressions Abdomen/Pelvis CT 07/18/18 10:06 IMPRESSION: Severe left-sided hydroureteronephrosis relating to an obstructing stone in the low left ureter, just proximal to the left ureterovesical junction. This stone measures 8.4 x 5.8 mm. There is extensive left perinephric stranding with prominence of nearby retroperitoneal lymph nodes. The distended left renal calices efface the cortical parenchyma. The left renal parenchyma is somewhat heterogeneous. Correlate for signs and/or symptoms of superimposed ascending urinary tract infection and/or pyelonephritis. The renal parenchyma is not well studied without IV contrast. Urologic consultation recommended. Subtle increase in the density of the right renal papilla of uncertain significance. This could reflect changes relating to medullary nephrocalcinosis. Clinical correlation recommended. 4.0 cm sized left ovarian cyst with simple features. This requires no specific imaging follow-up. Mild sclerosis of the sacroiliac joints of uncertain significance. Clinical correlation is recommended. D/ / 07/18/2018 12:52:47 Nikita Calvert MD / [email or web address] Interpreting Provider: Nikita Calvert MD - Assessment and Plan (1) Sepsis Current Visit: Yes Status: Acute Assessment and plan: She was assessed with sepsis 2/2 to UTI with pyelonephritis. WBC elevated at 30 Started on IV fluids, antibiotics with ceftriaxone. Obtain blood cultures and urine cultures Urology plan on ureteroscopy with stone removal Qualifiers: Qualified Code(s): A41.9 - Sepsis, unspecified organism (2) Acute pyelonephritis Current Visit: Yes Status: Acute Assessment and plan: See #1. On antibiotics (3) Ureteral stone with hydronephrosis Current Visit: Yes Status: Acute Assessment and plan: Seen by urology. Plan for ureteroscopy with stone extraction (4) Hydronephrosis Current Visit: Yes Status: Acute Assessment and plan: Urology on board for stone extraction. Continue IV fluids Qualifiers: Hydronephrosis type: unspecified Qualified Code(s): N13.30 - Unspecified hydronephrosis (5) DVT prophylaxis Current Visit: Yes Status: Acute Assessment and plan: Heparin sc - Time Spent With Patient Total time spent is greater than 50% in coordination of care (as documented) at patient's floor/unit and/or counseling patient:
--- NOTE | 2018-07-18 16:58 | Operative Note ---
Date of procedure: 07/18/18 Pre-op diagnosis: Left ureteral stone Post-op diagnosis: same Procedure: Left ureteroscopy, laser lithotripsy, basket stone extraction, and stent placement. Implants: 4.8 Jordanian x 24 cm JJ stent Complications: none Anesthesia: JUSTINEA Surgeon: Ronal Kendall Was there an assistant womens volleyball coach present: No Estimated blood loss (cc): 0 Specimen: left ureteral stone Condition: stable Disposition: PACU Procedure in Detail: Indications: Abby is a 38-year-old female who presents with left flank pain. A CT scan showed a distal left ureteral stone. She was admitted for pain control and possible infection. She elected to have the stone removed. She elected to undergo a left ureteroscopy, laser lithotripsy, and stent placement. She was aware of the risks of the procedure including but not limited to bleeding, infection, injury to other structures, need for further procedures, need for stent, stent irritation, incomplete treatment, and the risk of anesthesia. She is willing to proceed. Procedure: After informed consent was obtained the patient was brought back to the operating room and placed in supine position. A time out was performed. General anesthesia was administered and an LMA was placed. She was then placed in the lithotomy position. She was prepped and draped in the usual sterile fashion. Cystoscopy was performed. The anterior urethra was normal. There was no evidence of bladder tumors. The ureteral orifices were in the normal orthotopic position. There was no duplication of the ureteral orifices. The Zip wire was placed in the left ureteral orifice, and it was brought into the kidney under fluoroscopic guidance. I then advanced the semirigid ureteroscope into the ureter. The stone was fragmented using the 365 micron fiber. The stone fragments were then basket extracted. A 4.8 Jordanian by 24cm JJ stent was then placed with good curl seen in the kidney and the bladder. The dangle string was removed. The bladder was drained. The patient was then awakened from general anesthesia and brought to recovery room in good condition. All sponge, needle, and instrument counts were correct
--- NOTE | 2018-07-18 17:38 | Anesthesia Evaluation Post Op ---
Date of Encounter: 07/18/18 Time of Encounter: 17:35 - Vital Signs Vital Signs: Vital Signs/O2 Sat/Glucose, Most Current Temp Pulse Resp BP Pulse Ox 07/18/18 17:31 98.9 F 108 18 103/51 98 07/18/18 17:21 112 18 107/56 97 07/18/18 17:11 116 18 112/52 96 07/18/18 17:01 97.8 F 109 20 115/47 100 07/18/18 15:04 100.1 F H 90 18 129/76 99 - Lungs Lungs: Clear Ascult./Percussion - Airway Airway: Non-obstructed - Cardiovascular Regular Rate - Mental Status Mental Status: Alert & Oriented, Answers Appropriately - Pain Pain Scale: 0 - Nausea Vomiting Nausea Vomiting: Not Present - Hydration Hydration: Tolerates oral liquids - Discharge PostOp Status: Transfer Patient to floor
[2018-07-18] MEDS ORDERED: *HR* Heparin 5,000 UNIT/ML VIAL SQ SCH (18:00)
[2018-07-18] MEDS: *HR* Heparin 5,000 UNIT/ML VIAL SQ SCH (19:56)
[2018-07-18] MEDS: Nicotine 14 MG PATCH.TD24 TD SCH (20:16)
[2018-07-18] MEDS: 0.9 % Sodium Chloride 1,000 ML IVC SCH (20:18)
[2018-07-18] MEDS: Ondansetron 4 MG/2 ML VIAL IVP PRN (22:43)
[2018-07-18] MEDS: Ketorolac 15 MG/ML VIAL IVP PRN (22:46)
[2018-07-19] MEDS: *HR* Heparin 5,000 UNIT/ML VIAL SQ SCH ×2 (03:19→17:09)
[2018-07-19] MEDS: 0.9 % Sodium Chloride 1,000 ML IVC SCH ×3 (04:11→19:39)
[2018-07-19] MEDS: Ondansetron 4 MG/2 ML VIAL IVP PRN ×2 (04:35→18:20)
[2018-07-19] MEDS: Ketorolac 15 MG/ML VIAL IVP PRN ×2 (05:42→15:37)
[2018-07-19 06:18] LABS: Basophils % 0.1 %; Hematocrit 36.4 % (35.3-44.9); Immature Granulocytes % 0.7 % (0-4); Lymphocytes # 0.9 K/mcL (0.6-4.6); Lymphocytes % 3.5 %; Mean Corpuscular HGB Conc 34.3 g/dL (31.6-35.5); Mean Corpuscular Hemoglobin 33.3 pg (28.0-33.3); Mean Corpuscular Volume 97.1 fL (83.0-100.0); Mean Platelet Volume 10.5 fL (9.4-12.4); Monocytes # 1.3 K/mcL (0.0-1.3); Monocytes % 5.1 %; Neutrophils # 22.6 K/mcL (1.6-8.9); Platelet Count 175 K/mcL (140-400); Red Blood Count 3.75 M/mcL (3.82-4.97); Red Cell Distribution Width 13.6 % (11.5-14.5); Segmented Neutrophils % 90.6 %
[2018-07-19 06:22] LABS: Hemoglobin 12.5 g/dL (11.5-15.4)
[2018-07-19 06:39] LABS: BUN/Creatinine Ratio 16 (6-26); Blood Urea Nitrogen 15 mg/dL (6-20); Calcium 8.5 mg/dL (8.6-10.3); Carbon Dioxide 22 mEq/L (23-29); Chloride 107 mEq/L (98-107); Glucose 127 mg/dL (70-105); Magnesium 1.8 mg/dL (1.6-2.6); Osmolality,Calculated 286 (280-300); Sodium 137 mEq/L (136-145); eGFR For Non-African Americans > 60 (> 60)
[2018-07-19 06:56] LABS: Platelet Estimate Normal (Normal)
[2018-07-19 06:57] LABS: Reactive Lymphocytes Present (Not Present)
--- NOTE | 2018-07-19 07:35 | Urology Progress Note ---
Date of Encounter: 07/19/18 Time of Encounter: 07:33 - Assessment and Plan (1) Ureteral stone with hydronephrosis Current Visit: Yes Status: Acute Assessment and plan: Patient is a 38-year-old female who presents one day status post left ureteroscopy, laser lithotripsy, basket stone extraction, and stent placement. Vital signs are stable and afebrile, although, patient had low-grade fever last night with maximum temperature to 100.1. White blood cell count is trending down to 24.9, and renal function is reassuring. Patient is receiving IV Rocephin. Recommend patient being 24 hours afebrile before considering discharge as well as repeat CBC to confirm WBC downward trend. Blood cultures pending. Progress Note Subjective: feels better Narrative: POD #1. Patient seen and examined lying in bed in no apparent distress. Patient reports she is tolerating normal diet and is voiding without difficulty. Patient denies fever, chills, flank pain, gross hematuria but states nurse reports she had a low-grade fever overnight. Objective Initial Vital Signs Temp Pulse Resp BP Pulse Ox 99.4 F 95 18 136/84 98 07/18/18 09:36 07/18/18 09:36 07/18/18 09:36 07/18/18 09:36 07/18/18 09:36 - General physical appearance Present: well developed, no distress, no pain - Respiratory Present: normal expansion, normal respiratory effort - Abdomen Present: soft, non tender - Integumentary Present: no rash, no abnormal pigmentation - Musculoskeletal Present: normal posture - Psychiatric Present: oriented to time, oriented to person, oriented to place, speech is normal, memory intact - Labs 07/19/18 05:40 07/19/18 05:40 Diabetes panel 07/18/18 07/19/18 Range/Units 10:24 05:40 Sodium 134 L 137 (136-145) mEq/L Potassium 3.7 4.0 (3.5-5.1) mEq/L Chloride 103 107 (98-107) mEq/L Carbon Dioxide 23 22 L (23-29) mEq/L BUN 15 15 (6-20) mg/dL Creatinine 0.98 0.94 (0.60-1.20) mg/dL Glucose 127 H 127 H (70-105) mg/dL Calcium 9.6 8.5 L (8.6-10.3) mg/dL AST 15 (13-39) Units/L ALT 12 (7-52) Units/L Alkaline Phosphatase 68 (34-104) Units/L Albumin 4.3 (3.5-5.7) g/dL Calcium panel 07/18/18 07/19/18 Range/Units 10:24 05:40 Calcium 9.6 8.5 L (8.6-10.3) mg/dL Phosphorus 2.0 L (2.7-4.5) mg/dL Albumin 4.3 (3.5-5.7) g/dL Pituitary panel 07/18/18 07/19/18 Range/Units 10:24 05:40 Sodium 134 L 137 (136-145) mEq/L Potassium 3.7 4.0 (3.5-5.1) mEq/L Chloride 103 107 (98-107) mEq/L Carbon Dioxide 23 22 L (23-29) mEq/L BUN 15 15 (6-20) mg/dL Creatinine 0.98 0.94 (0.60-1.20) mg/dL Glucose 127 H 127 H (70-105) mg/dL Calcium 9.6 8.5 L (8.6-10.3) mg/dL Adrenal panel 07/18/18 07/19/18 Range/Units 10:24 05:40 Sodium 134 L 137 (136-145) mEq/L Potassium 3.7 4.0 (3.5-5.1) mEq/L Chloride 103 107 (98-107) mEq/L Carbon Dioxide 23 22 L (23-29) mEq/L BUN 15 15 (6-20) mg/dL Creatinine 0.98 0.94 (0.60-1.20) mg/dL Glucose 127 H 127 H (70-105) mg/dL Calcium 9.6 8.5 L (8.6-10.3) mg/dL Total Bilirubin 0.8 (0.3-1.0) mg/dL AST 15 (13-39) Units/L ALT 12 (7-52) Units/L Alkaline Phosphatase 68 (34-104) Units/L Albumin 4.3 (3.5-5.7) g/dL Consult Discharge Plan - Plan Referrals: NONE,PCP [Primary Care Provider] -
[2018-07-19] MEDS ORDERED: cefTRIAXone 1,000 MG in Water for inj. (sterile) 20 ML 10 ML IVP SCH (09:00)
[2018-07-19] MEDS: Nicotine 14 MG PATCH.TD24 TD SCH (09:07)
[2018-07-19] MEDS: *HR* OxyCODONE/APAP 5/325 TABLET PO PRN ×3 (09:07→22:48)
[2018-07-19] MEDS: cefTRIAXone 1,000 MG in Water for inj. (sterile) 20 ML 10 ML IVP SCH (09:08)
--- NOTE | 2018-07-19 16:50 | Internal Med Progress Note ---
Hospitalist Progress Note - Encounter Date of Encounter: 07/19/18 Time of Encounter: 13:00 - Subjective Interval History: SUBJECTIVE: The patient feels better. Her left flank pain has decreased her in intensity. Denies nausea and vomiting. She had a stone extraction and insertion of ureteral stent done yesterday by urology. She is on IV fluids and IV Rocephin for treatment of acute pyelonephritis or sepsis. She does not have any significant past medical history. OBJECTIVE: Skin: Free of rash and discoloration. ENMT: Oral/pharyngeal mucosa is normal in appearance. Eyes: Sclera is white. There is no discharge from eyes. Respiratory: Normal breath sounds; no crackles or wheezes. CV: Heart is regular; no gallop or murmur. GI: Abdomen is soft and not tender. There is no palpable mass or visceromegaly. : There is tenderness in the area of left flank. Neuro: There is no focal deficits. ADDITIONAL DATA: CBC shows hemoglobin of 12.5 with WBC of 24.9 thousand (30.7 thousand yesterday). BMP is normal. UA shows changes typical for urinary tract infection. ASSESSMENT AND PLAN: Ureteral stone with hydronephrosis, on the left side. The stone has been removed her and left ureteral stent has been inserted. See notes from urology. Acute pyelonephritis/sepsis. Seems to be better. To continue IV fluids and IV Rocephin. Urine culture and blood cultures are pending. - Exam Vitals: Temp Pulse Resp BP Pulse Ox 98.0 F 76 17 107/69 95 07/19/18 14:23 07/19/18 14:23 07/19/18 14:23 07/19/18 14:23 07/19/18 14:23 Exam: xx - Assessment and Plan (1) Ureteral stone with hydronephrosis Current Visit: Yes Status: Acute (2) Acute pyelonephritis Current Visit: Yes Status: Acute (3) Sepsis Current Visit: Yes Status: Acute - Time Spent with Patient Total time spent is greater than 50% in coordination of care (as documented) at patient's floor/unit and/or counseling patient: 25 - 35 minutes Plan of Care Discussed with: patient Internal Medicine: Result - Labs CBC & Chem 7: 07/19/18 05:40 07/19/18 05:40 Labs: Short CBC 07/19/18 Range/Units 05:40 WBC 24.9 H (4.3-11.1) K/mcL Hgb 12.5 D (11.5-15.4) g/dL Hct 36.4 (35.3-44.9) % Plt Count 175 (140-400) K/mcL Neutrophils # 22.6 H (1.6-8.9) K/mcL BMP 07/19/18 05:40 Sodium 137 Potassium 4.0 Chloride 107 Carbon Dioxide 22 L BUN 15 Creatinine 0.94 Glucose 127 H Calcium 8.5 L - Impressions Impressions Fluoroscopy 07/18/18 16:15 IMPRESSION: Fluoroscopic imaging provided during ureteral stone extraction and double-J nephroureteral stent placement. Please see procedure note for further details. D/ / Alberto Manuel / Alberto Manuel Interpreting Provider: Alberto Manuel Consult Discharge Plan - Plan Referrals: NONE,PCP [Primary Care Provider] - __ (3) Sepsis Qualifiers: Qualified Code(s): A41.9 - Sepsis, unspecified organism
[2018-07-20] MEDS: Ondansetron 4 MG/2 ML VIAL IVP PRN (00:07)
[2018-07-20] MEDS: Nicotine 14 MG PATCH.TD24 TD SCH (09:07)
[2018-07-20] MEDS: cefTRIAXone 1,000 MG in Water for inj. (sterile) 20 ML 10 ML IVP SCH (09:07)
--- NOTE | 2018-07-20 10:01 | Urology Progress Note ---
Date of Encounter: 07/20/18 Time of Encounter: 09:59 - Assessment and Plan (1) Urolithiasis Current Visit: Yes Status: Acute Assessment and plan: Postoperative day #2 status post left ureteroscopic stone extraction. She is doing well today. I think it is reasonable to discharge her home on Omnicef 3 mg by mouth twice a day for 10 days. We will arrange for outpatient cystoscopy and stent removal. Qualifiers: Urinary calculus location: ureter Qualified Code(s): N20.1 - Calculus of ureter Progress Note Narrative: POD #2. Patient seen and examined lying in bed in no apparent distress. Patient reports she is tolerating normal diet and is voiding without difficulty. Urine is becoming more clear. Patient denies fever, chills. Pain control improving. Objective Initial Vital Signs Temp Pulse Resp BP Pulse Ox 99.4 F 95 18 136/84 98 07/18/18 09:36 07/18/18 09:36 07/18/18 09:36 07/18/18 09:36 07/18/18 09:36 - General physical appearance Present: well developed, well nourished, no distress - Respiratory Present: normal respiratory effort - Abdomen Present: soft - Labs 07/19/18 05:40 07/19/18 05:40 Consult Discharge Plan - Plan Referrals: NONE,PCP [Primary Care Provider] -
[2018-07-20] MEDS: *HR* OxyCODONE/APAP 5/325 TABLET PO PRN ×2 (10:29→15:19)
[2018-07-20 10:38] LABS: Basophils % 0.2 %; Eosinophils # 0.2 K/mcL (0.0-0.6); Hematocrit 36.4 % (35.3-44.9); Hemoglobin 12.1 g/dL (11.5-15.4); Immature Granulocytes % 0.6 % (0-4); Lymphocytes # 2.5 K/mcL (0.6-4.6); Lymphocytes % 16.3 %; Mean Corpuscular HGB Conc 33.2 g/dL (31.6-35.5); Mean Corpuscular Hemoglobin 32.5 pg (28.0-33.3); Mean Corpuscular Volume 97.8 fL (83.0-100.0); Mean Platelet Volume 10.7 fL (9.4-12.4); Monocytes # 1.2 K/mcL (0.0-1.3); Monocytes % 7.6 %; Neutrophils # 11.4 K/mcL (1.6-8.9); Platelet Count 199 K/mcL (140-400); Red Blood Count 3.72 M/mcL (3.82-4.97); Red Cell Distribution Width 13.8 % (11.5-14.5); Segmented Neutrophils % 74.3 %
[2018-07-20 11:05] LABS: BUN/Creatinine Ratio 20 (6-26); Blood Urea Nitrogen 18 mg/dL (6-20); Calcium 8.6 mg/dL (8.6-10.3); Carbon Dioxide 20 mEq/L (23-29); Chloride 111 mEq/L (98-107); Glucose 111 mg/dL (70-105); Osmolality,Calculated 289 (280-300); Potassium 3.8 mEq/L (3.5-5.1); Sodium 138 mEq/L (136-145); eGFR For Non-African Americans > 60 (> 60)
[2018-07-20] MEDS: *HR* Heparin 5,000 UNIT/ML VIAL SQ SCH (11:36)
[2018-07-20] MEDS: 0.9 % Sodium Chloride 1,000 ML IVC SCH (11:36)
[2018-07-20 15:33] VITALS: BP 108/74
--- NOTE | 2018-07-20 16:25 | Discharge Summary ---
Orders not resulted at time of discharge: Pending orders 07/18/18 14:16 Culture,Urine [RM] Routine 07/18/18 14:52 Culture,Blood [BC] Routine 07/18/18 16:15 XR KUB [XR] Routine 07/18/18 16:52 Surgical Pathology [PTH] Routine Date of Encounter: 07/20/18 Time of Encounter: 16:22 - Discharge Diagnosis (1) Ureteral stone with hydronephrosis Priority: Primary Status: Acute (2) Acute pyelonephritis Priority: Primary Status: Acute (3) Sepsis Priority: Primary Status: Resolved Qualifiers: Qualified Code(s): A41.9 - Sepsis, unspecified organism Hospital course: Ms. Pena is a 38 year old female Discharge discussed with: patient, family - Time Spent with Patient Total time spent providing and/or coordinating discharge services: Time spent: Less than 30 minutes - Discharge Medications Prescriptions: New Cefdinir [Omnicef] 300 mg PO BID 7 Days #14 capsule Home Medications: Cefdinir [Omnicef] 300 mg PO BID 7 Days #14 capsule 07/20/18 [Rx] Allergies/Adverse Reactions: Allergy/AdvReac Type Severity Reaction Status Date / Time No Known Allergies Allergy Verified 07/18/18 09:49 Date of admission: 07/18/18 18:26 Primary care physician: PCP NONE Consults: 07/18/18 13:19 Consult to Urology [CONS] Stat Consulting Provider: Camrony Meagan Reason for Consult: left UVJ sotne 8x5mm, possible UTI Time Notified: 13:19 Call Completed: Yes Discharging clinician: Justin Thomas Anticipated date of discharge: 07/20/18 - Constitutional Vitals: Temp Pulse Resp BP Pulse Ox 98.4 F 67 17 108/74 99 07/20/18 15:32 07/20/18 15:32 07/20/18 15:32 07/20/18 15:32 07/20/18 15:32 General appearance: Present: A&O X 3, no acute distress, answers questions appropriately Exam: xx - Patient Status Disposition: Home, Self-Care Condition: Good Functional capacity at discharge: independent ambulation Overall status at discharge: patient is progressing back to baseline - Discharge Instructions Follow Up With: NONE,PCP [Primary Care Provider] - Additional Instructions: FOLLOW-UP WITH UROLOGY -- IN 5 DAYS... - Diet and Activity Activity: increase activity as tolerated Diet: advance to your usual diet
== END 2018-07-20 17:50 | disposition home or self-care (01) | DRG 710 ==
LOC: EMEROOARM 09:35 → 2ANU 09:35 → SUATTDRO 18:26
PROVIDERS: ADMIT Student in an Organized Health Care Education/Training Program; ATTEND Internal Medicine